=== PATIENT | male | born 1970 | race Caucasian/White ===

== ENCOUNTER 2016-08-03 15:22 | Emergency (ER) | payer OTHER ==
[~2016-08-03] VITALS: Ht 177.8 cm; Wt 95.3 kg
--- NOTE | ~2016-08-03 | EKG ---
[place] [address] [facility] [place] [address] ELECTROCARDIOGRAM REPORT Name: MAKSIM SAEZFLOYD Noel Room #: [facility]#: [id number] Admission: 08/03/16 Attend Phys: Discharge: Date of : 66 Report #: [id number] THIS REPORT FOR: //name// [facility] ED Test Date: 2016-08-03 Test Time: 15:24:52 Pat Name: VINH SAEZ Department: Room: Gender: Certified Medical Technician: : 1970 Requested By: Graham Cook Order Number: [id number] MD: Randolph Mason Measurements Intervals [place] Rate: 72 P: 40 ME: 149 QRS: -2 QRSD: 90 T: 35 QT: 365 QTc: 400 Interpretive Statements Sinus rhythm RSR' in V1 or V2, right VCD or RVH No previous ECG available for comparison Electronically Signed On 08-03-2016 16:53:13 DIRECTOR [employer] by Randolph Mason [email or web address] <ELECTRONICALLY SIGNED> By: Randolph Mason MD 08/03/16 1653 1524 1524 MD MUNA Harris
--- NOTE | ~2016-08-03 | EKG ---
[place] [address] [facility] [place] [address] ELECTROCARDIOGRAM REPORT Name: VINH SAEZ Room #: [facility]#: [id number] Admission: 08/03/16 Attend Phys: Discharge: 08/03/16 Date of : 66 Report #: [id number] THIS REPORT FOR: //name// [facility] ED Test Date: 2016-08-03 Test Time: 18:10:55 Pat Name: VINH SAEZ Department: Room: Gender: Typing Checker: Cookie MERLOS : 1970 Requested By: Graham Cook Order Number: [id number] MD: Petar Do Measurements Intervals [place] Rate: 60 P: 25 NC: 149 QRS: 0 QRSD: 91 T: 41 QT: 382 QTc: 382 Interpretive Statements Sinus rhythm Abnormal R-wave progression, early transition Compared to ECG 08/03/2016 15:24:52 No significant change was found Electronically Signed On 08-04-2016 8:32:05 [employer] SUPERINTENDENT by Petar Do [email or web address] <ELECTRONICALLY SIGNED> By: Petar Do MD, [facility] 08/04/16 0832 09 09 Petar Do MD, [facility] /EPI
[~2016-08-03 15:22] MED LIST: ACETAMINOPHEN325 MG PO; AFEDITAB CR60 MG PO; BAYER CHEWABLE81 MG PO; BYSTOLIC 5 MG5 M1 PO; HYDROCHLOROTHIA25 M2 PO; IBUPROFEN 200200 M1 PO; LISINOPRIL20 MG PO; POTASSIUM20 PO; SUDAFED 12 HOU120 MG PO
[2016-08-03] MEDS ORDERED: LISINOPRIL20 MG PO (15:39)
[2016-08-03 15:45] LABS: ABSOLUTE NEUTROPHILS 5.2 thou/uL (1.4-8.2); BASOPHILS 0.7 % (0.0-2.0); EOSINOPHILS 0.8 % (0.0-3.0); HEMATOCRIT 46.2 % (42.0-52.0); HEMOGLOBIN 15.8 gm/dL (14.0-18.0); LYMPHOCYTES 21.4 % (24.0-44.0); MCH 28.4 pg (26.0-34.0); MCHC 34.2 % (28.0-37.0); MONOCYTES 6.1 % (1.0-8.0); PLATELET COUNT 221 thou/uL (150-400); RBC 5.57 mil/uL (4.50-6.00); RDW 12.7 % (10.5-14.5); WBC 7.3 thou/uL (4.0-11.0)
[2016-08-03 15:47] LABS: MANUAL DIFF NO
[2016-08-03 15:53] LABS: ANION GAP 9 mmol/L (7-16); BUN 19 mg/dL (7-18); CHLORIDE 106 mmol/L (98-107); CO2 28 mmol/L (21-32); CREATININE 1.5 mg/dL (0.6-1.3); GLUCOSE 95 mg/dL (70-99); POTASSIUM 4.5 mmol/L (3.5-5.1); SODIUM 143 mmol/L (136-145)
[2016-08-03 16:02] LABS: ALBUMIN 4.2 g/dL (3.4-5.0); ALKALINE PHOSPHATASE 115 U/L (46-116); MAGNESIUM 2.5 mg/dL (1.8-2.4); SGOT 13 U/L (15-37); SGPT 29 U/L (30-65); TOTAL BILIRUBIN 0.6 mg/dL (<0.1-1.0); TOTAL PROTEIN 7.6 g/dL (6.4-8.2); TROPONIN-I < 0.04 ng/mL (<0.04-0.07)
== END 2016-08-03 18:39 | disposition home or self-care (01) ==
LOC: ER 15:22
PROVIDERS: Emergency Medicine
DX: R07.89 Other chest pain (principal); I10 Essential (primary) hypertension; F10.99 Alcohol use, unspecified with unspecified alcohol-induced disorder